=== PATIENT | male | born 1965 | race Caucasian/White ===

== ENCOUNTER 2019-10-22 18:49 | Emergency (ER) | payer OTHER ==
[~2019-10-22] VITALS: Ht 175.3 cm; Wt 87.5 kg
[2019-10-22 19:00] VITALS: Ht 175.3 cm; Wt 87.5 kg
[2019-10-22 19:38] VITALS: BP 161/97
== END 2019-10-22 19:38 | disposition home or self-care (01) ==
LOC: ED 18:49
DX: I10 Essential (primary) hypertension (principal); Z76.0 Encounter for issue of repeat prescription; Z88.1 Allergy status to other antibiotic agents; Z98.890 Other specified postprocedural states

== ENCOUNTER 2019-11-10 20:03 | Emergency (ER) | payer OTHER ==
[~2019-11-10] VITALS: Ht 170.2 cm; Wt 85.9 kg
[2019-11-10 21:37] VITALS: BP 151/87
== END 2019-11-10 21:37 | disposition home or self-care (01) ==
LOC: ED 20:03
DX: F90.9 Attention-deficit hyperactivity disorder, unspecified type (principal); F17.210 Nicotine dependence, cigarettes, uncomplicated; Z76.0 Encounter for issue of repeat prescription; Z98.890 Other specified postprocedural states; Z88.1 Allergy status to other antibiotic agents
CPT/HCPCS: 99406

== ENCOUNTER 2019-12-16 16:47 | Emergency (ER) | payer OTHER ==
[~2019-12-16] VITALS: Ht 172.7 cm; Wt 88.0 kg
[2019-12-16 16:51] VITALS: BP 149/87; Ht 172.7 cm; Wt 88.0 kg
== END 2019-12-16 17:19 | disposition home or self-care (01) ==
LOC: ED 16:47
DX: F90.9 Attention-deficit hyperactivity disorder, unspecified type (principal); I10 Essential (primary) hypertension; Z76.0 Encounter for issue of repeat prescription; Z98.890 Other specified postprocedural states; Z88.1 Allergy status to other antibiotic agents